=== PATIENT | female | born 1950 | race Caucasian/White ===

== ENCOUNTER → 2023-08-25 | Outpatient (CLI) | payer MEDICARE ==
[~2023-08-25] MED LIST: BARIUM SULFATE 700 MG TABLET (E-Z-DISK) As Ordered ONE; E-Z-PAQUE 96% w/w SUSP 176GM BTL As Ordered ONE; VARIBAR NECTAR 40% w/v 240ML SUSP BTL As Ordered ONE; VARIBAR PUDDING 40% w/v 230ML TUBE As Ordered ONE
== END ==
LOC: M RAD 12:36
PROVIDERS: ATTEND Otolaryngology
DX: R13.19 Other dysphagia (principal)

== ENCOUNTER 2024-07-12 09:37 | Emergency (ER) | payer MEDICARE, OTHER ==
[~2024-07-12] VITALS: Ht 154.9 cm; Wt 61.1 kg
[2024-07-12 09:44] VITALS: BP 109/68; TEMP 96.9; O2SAT 100
[2024-07-12] MEDS ORDERED: SUMA100T2 (09:57)
[2024-07-12] MEDS ORDERED: OMEP40CA5 (09:57)
[2024-07-12] MEDS ORDERED: CLON0.5T2 (09:57)
[2024-07-12] MEDS ORDERED: OXYC-517 (09:57)
[2024-07-12] MEDS ORDERED: ATOR1TAB21 (09:57)
[2024-07-12] MEDS ORDERED: TIZA10TA (09:57)
[2024-07-12] MEDS ORDERED: METH-1164 (09:57)
[2024-07-12] MEDS ORDERED: LOSA50TA28 (09:57)
[2024-07-12] MEDS ORDERED: GABA-284 PO (11:59)
[2024-07-12] MEDS ORDERED: LIDO5DIS41 TOP (11:59)
== END 2024-07-12 12:22 | disposition home or self-care (01) ==
LOC: M ED 09:37
DX: M54.50 Low back pain, unspecified (principal); I10 Essential (primary) hypertension; K21.9 Gastro-esophageal reflux disease without esophagitis

== ENCOUNTER → 2025-01-10 | Outpatient (CLI) | payer MEDICARE ==
[~2025-01-10] MED LIST changes: +ATOR1TAB21; -BARIUM SULFATE 700 MG TABLET (E-Z-DISK) As Ordered ONE; +CLON0.5T2; -E-Z-PAQUE 96% w/w SUSP 176GM BTL As Ordered ONE; +GABA-284 PO; +LIDO1ADH93 TOP; +LOSA50TA28; +METH-1164; +OMEP40CA5; +OXYC-517; +PROHANCE 279.3MG/ML 15ML VIAL As Ordered ONE; +SUMA100T2; +TIZA10TA; -VARIBAR NECTAR 40% w/v 240ML SUSP BTL As Ordered ONE; -VARIBAR PUDDING 40% w/v 230ML TUBE As Ordered ONE
== END ==
LOC: M RAD 12:42
PROVIDERS: ATTEND Physician Assistant Surgical
DX: M54.50 Low back pain, unspecified (principal)
CPT/HCPCS: 72158; A9576